=== PATIENT | female | born 1985 | race Caucasian/White ===

== ENCOUNTER 2017-01-28 08:19 | Emergency (ER) | payer MEDICAID, OTHER ==
--- NOTE | 2017-01-28 08:47 | ER Document Report ---
HPI - HPI Patient complains to provider of: productive cough Onset: Other Onset/Duration: Persistent Quality of pain: Burning Severity: Severe Pain Level: 4 Context: Patient presents emergency department with complaints of productive cough for the past 3 days. Reports she's been coughing up some green sputum. She also reports her chest feels tight when she coughs and henderson. She denies vomiting diarrhea is unsure fever because she's not taken her temperature. Last Tylenol was at 7:00 this morning. Patient reports she's having hard time sleeping because she keeps coughing. Patient reports history of bronchitis. Associated Symptoms: None Exacerbated by: Denies Relieved by: Denies Similar symptoms previously: Yes - hx bronchitis yearly Recently seen / treated by doctor: No - REPRODUCTIVE Reproductive: DENIES: : - DERM Skin Color: Normal Past Medical History - General Information source: Patient Last Menstrual Period: 26 weeks due 07/28/17, - Social History Smoking Status: Unknown if Ever Smoked Cigarette use (# per day): No Frequency of alcohol use: None Drug Abuse: None Lives with: Family Family History: Reviewed & Not Pertinent Patient has suicidal ideation: No Patient has homicidal ideation: No Pulmonary Medical History: Reports: Hx Bronchitis Endocrine Medical History: Reports: Hx Hyperthyroidism Renal/ Medical History: Denies: Hx Peritoneal Dialysis Surgical Hx: Negative - Immunizations Hx Diphtheria, Pertussis, Tetanus Vaccination: Yes Vertical Provider Document - CONSTITUTIONAL Agree With Documented VS: Yes Exam Limitations: No Limitations General Appearance: WD/WN, No Apparent Distress - NONTOXIC LOOKING - INFECTION CONTROL TRAVEL OUTSIDE OF THE [place] IN LAST 30 DAYS: No - HEENT HEENT: Atraumatic, Normocephalic. negative: Conjuctival Injection, Pharyngeal Tenderness, Tympanic Membrane Red, Tympanic Membrane Bulging - NECK Neck: Normal Inspection, Supple. negative: Lymphadenopathy-Left, Lymphadenopathy-Right - RESPIRATORY Respiratory: Breath Sounds Normal, No Respiratory Distress, Chest Non-Tender. negative: Rales, Rhonchi, Wheezing O2 Sat by Pulse Oximetry: 98 - CARDIOVASCULAR Cardiovascular: Regular Rate - GI/ABDOMEN Gastrointestinal: Abdomen Soft - GRAVID female, Abdomen Non-Tender - BACK Back: Normal Inspection - MUSCULOSKELETAL/EXTREMETIES Musculoskeletal/Extremeties: SHARI MCINTYRE - NEURO Level of Consciousness: Awake, Alert, Appropriate Motor/Sensory: No Motor Deficit - DERM Integumentary: Warm, Dry Course - Re-evaluation Re-evalutation: 01/28/17 09:48 Patient instructed on negative x-ray. Instructed on inhaler Tylenol with codeine for cough. She verbalized understanding. She was also instructed to follow up with her primary care provider on Tuesday for recheck, return for concerns - Vital Signs Vital signs: Temp Pulse Resp BP Pulse Ox 98.7 F 104 H 18 128/77 H 98 01/28/17 08:20 01/28/17 08:20 01/28/17 08:20 01/28/17 08:20 01/28/17 08:20 - Diagnostic Test Radiology reviewed: Image reviewed, Reports reviewed - EXAM DESCRIPTION: CHEST PA/LAT COMPLETED DATE/TIME: 01/28/2017 9:30 am REASON FOR STUDY: productive cough COMPARISON: None. EXAM PARAMETERS: NUMBER OF VIEWS: two views TECHNIQUE: Digital Frontal and Lateral radiographic views of the chest acquired. RADIATION DOSE: NA LIMITATIONS: none FINDINGS: LUNGS AND PLEURA: No opacities, masses or pneumothorax. No pleural effusion. MEDIASTINUM AND HILAR STRUCTURES: No masses or contour abnormalities. HEART AND VASCULAR STRUCTURES: Heart normal size. No evidence for failure. BONES: No acute findings. HARDWARE: None in the chest. OTHER: No other significant finding. TECHNICAL DOCUMENTATION: JOB ID: [id number] [employer]- All Rights Reserved RAD/CHEST PA/LAT IMPRESSION: NO SIGNIFICANT RADIOGRAPHIC FINDING IN THE CHEST. Discharge - Discharge Clinical Impression: Cough Disposition: HOME, SELF-CARE Instructions: Acetaminophen with Codeine ([facility]), Bronchodilators ([facility]) Additional Instructions: *You have been evaluated for a cough *Take medication as prescribed for cough *Use inhaler as prescribed, 2 puffs every 4-6 hours for cough *Increase fluids *Monitor your temperature, take Tylenol as indicated *Follow up with a primary care provider on Tuesday *Return to ED for increasing fever, cough, worsening condition, changes, needs Prescriptions: Acetaminophen with Codeine [Acetaminop-Codeine 120-12 mg/5] 5 ml PO Q4H PRN #60 solution PRN Reason: Referrals: GRAY LUJAN, GABRIELLA-C [Primary Care Provider] - Follow up in 3-5 days
[2017-01-28] MEDS ORDERED: ALBUTEROL SULFATE HFA (90 MCG/PUFF) 8 GM MDI (1 MDI/ER DISP) IH ONE (09:25)
[2017-01-28 09:59] VITALS: BP 122/66
== END 2017-01-28 09:58 | disposition home or self-care (01) ==
LOC: ER 08:19
DX: O26.92 Pregnancy related conditions, unspecified, second trimester (principal); R05 Cough; Z3A.26 26 weeks gestation of pregnancy
CPT/HCPCS: 99283; 71020; J3490

== ENCOUNTER 2017-02-01 15:11 | Emergency (ER) | payer MEDICAID ==
--- NOTE | 2017-02-01 16:03 | ER Document Report ---
HPI - HPI Patient complains to provider of: SINUS PAIN AND PRESSURE, COUGH Onset: Other - TUESDAY Onset/Duration: Gradual, Worse Quality of pain: Achy Severity: Moderate Pain Level: 4 Context: Patient states she was seen by her computer software engineer on for OB check and placed on Keflex for possible sinus infection. Patient is also taking Tylenol sinus and cold medications. States it is not helping, now she is coughing and her upper back is hurting from coughing so much. Cough has gotten worse over the last couple of days, patient is producing yellow sputum. Denies fever. Patient complains of pain over her maxillary sinuses, and states her upper teeth hurt. Associated Symptoms: Productive cough, Headache, Sinus pain/drainage. denies: Fever, Shortness of breath Exacerbated by: Coughing Relieved by: Denies Similar symptoms previously: Yes Recently seen / treated by doctor: Yes - ROS ROS below otherwise negative: Yes Systems Reviewed and Negative: Yes All other systems reviewed and negative - CONSTITUTIONAL Constitutional: DENIES: Fever - EENT EENT: REPORTS: Nasal Drainage-Purulent, Congestion - NEURO Neurology: REPORTS: Headache - CARDIOVASCULAR Cardiovascular: REPORTS: Chest pain - WITH COUGH - RESPIRATORY Respiratory: REPORTS: Coughing. DENIES: Trouble Breathing - GASTROINTESTINAL Gastrointestinal: DENIES: Abdominal Pain - URINARY Urinary: DENIES: Dysuria - REPRODUCTIVE Reproductive: DENIES: : - MUSCULOSKELETAL Musculoskeletal: REPORTS: Back Pain - UPPER BACK PAIN FROM COUGHING. DENIES: Extremity pain - DERM Skin Color: Normal Skin Problems: None Past Medical History - General Information source: Patient - Social History Smoking Status: Former Smoker - QUIT 2-3 MONTHS AGO Chew tobacco use (# tins/day): No Frequency of alcohol use: None Drug Abuse: None Lives with: Family Family History: Reviewed & Not Pertinent Patient has suicidal ideation: No Patient has homicidal ideation: No Pulmonary Medical History: Reports: Hx Bronchitis Endocrine Medical History: Reports: Hx Hyperthyroidism Renal/ Medical History: Denies: Hx Peritoneal Dialysis Surgical Hx: Negative - Immunizations Hx Diphtheria, Pertussis, Tetanus Vaccination: Yes Vertical Provider Document - CONSTITUTIONAL Agree With Documented VS: Yes Exam Limitations: No Limitations General Appearance: WD/WN, No Apparent Distress - INFECTION CONTROL TRAVEL OUTSIDE OF THE [place] IN LAST 30 DAYS: No - HEENT HEENT: Atraumatic, Normocephalic Notes: TMs dull bilaterally. Patient very tender over maxillary sinuses. Throat mildly injected, no cervical adenopathy. - NECK Neck: Normal Inspection - RESPIRATORY Respiratory: Breath Sounds Normal, No Respiratory Distress O2 Sat by Pulse Oximetry: 97 Notes: Patient has frequent, barky cough with deep breathing on exam. Nonproductive at this time. - CARDIOVASCULAR Cardiovascular: Regular Rate, Regular Rhythm - GI/ABDOMEN Gastrointestinal: Abdomen Non-Tender Notes: Patient 27 weeks . - BACK Notes: Muscles tender upper to mid back with palpation. - MUSCULOSKELETAL/EXTREMETIES Musculoskeletal/Extremeties: SHARI MCINTYRE - NEURO Level of Consciousness: Awake, Alert, Appropriate - DERM Integumentary: Warm, Dry, No Rash Course - Re-evaluation Re-evalutation: 02/01/17 17:05 Patient states she feels better after albuterol treatment, and states she is coughing less. Discussed x-ray results with patient, they were negative for pneumonia. - Vital Signs Vital signs: Temp Pulse Resp BP Pulse Ox 98.1 F 96 16 124/75 97 02/01/17 15:39 02/01/17 15:39 02/01/17 15:39 02/01/17 15:39 02/01/17 15:39 Discharge - Discharge Clinical Impression: Cough Acute maxillary sinusitis, unspecified Qualifiers: Recurrence: not specified as recurrent Qualified Code(s): J01.00 - Acute maxillary sinusitis, unspecified Condition: Good Disposition: HOME, SELF-CARE Additional Instructions: Meds as prescribed. Start Augmentin tomorrow since you received Rocephin today in ER. Continue sinus medications as previously instructed. Push fluids. X-ray was negative for pneumonia. Follow with your doctor this week for recheck. Return as needed. Prescriptions: Albuterol Sulfate [Proair HFA] 8.5 gm IH PRN PRN #1 hfa.aer.ad PRN Reason: Amoxicillin/Potassium Clav [Augmentin 875-125 Tablet] 1 each PO BID #20 tablet Fluticasone Propionate [Flonase Allergy Relief] 15.8 ml NS DAILY #1 spray.susp Hydrocodone/Acetaminophen [[place] 5-325 mg Tablet] 1 tab PO PRN PRN #10 tablet PRN Reason:
[2017-02-01] MEDS ORDERED: ALBUTEROL SULFATE 0.083% NEB 2.5 MG/3 ML AMPUL NEB ONE (16:07)
[2017-02-01] MEDS ORDERED: CEFTRIAXONE INJ 1000 MG VIAL IM ONE (17:04)
[2017-02-01] MEDS ORDERED: LIDOCAINE 1% INJ-PF (10 MG/ML) 30 ML SDV INJ ONE (17:04)
[2017-02-01] MEDS ORDERED: HYDROCODONE/ACETAMINOPHEN 5-325 MG TABLET PO ONE (17:04)
[2017-02-01 17:32] VITALS: BP 107/68
== END 2017-02-01 17:34 | disposition home or self-care (01) ==
LOC: ER 15:11
DX: O99.512 Diseases of the respiratory system complicating pregnancy, second trimester (principal); J01.00 Acute maxillary sinusitis, unspecified; O26.892 Other specified pregnancy related conditions, second trimester; R05 Cough; R51 Headache; R07.89 Other chest pain; O99.89 Other specified diseases and conditions complicating pregnancy, childbirth and the puerperium; M54.89 Other dorsalgia; Z3A.27 27 weeks gestation of pregnancy; Z87.891 Personal history of nicotine dependence
CPT/HCPCS: 94640; 99283; 96372; 71010; J3490; J0696

== ENCOUNTER 2017-04-18 11:13 | Outpatient (CLI) | payer MEDICAID ==
[2017-04-18] MEDS ORDERED: MAG HYDROX/AL HYDROX/SIMETH SUSP 30 ML UDCUP ONE (11:48)
--- NOTE | 2017-04-18 14:14 | Non Stress Test Report ---
Non Stress Test Datetime Report Generated by CPN: 04/18/2017 14:13 INDICATION Indication for Study: Ordered by Provider Indication for Study (NST) Other: Repeat NST MONITORING Monitor Explained: Monitor Explained; Test Explained; Patient Verbalized Understanding Time on Monitor: 04/18/2017 11:40 Time off Monitor: 04/18/2017 12:27 NST Duration: 47 NST INTERVENTIONS NST Interventions: PO Hydration; Reposition Patient Physician Notified NST: P Saucedo CNM BABY A: [id number] BABY A Movement : Present Contraction Frequency : Irr FHR Baseline : 135 Accelerations : 15X15 Decelerations : None Variability : Moderate 6-25bpm NST Review: Meets Criteria for Reactive NST NST Review and Verified By : Lore PALMA RN NST Results: Reactive NST REPORT Report Trigger: Send Report
== END 2017-04-18 12:55 | disposition home or self-care (01) ==
LOC: LC 11:13
PROVIDERS: ATTEND Obstetrics & Gynecology
DX: Z34.90 Encounter for supervision of normal pregnancy, unspecified, unspecified trimester (principal)
CPT/HCPCS: 59025; 82962; J3490

== ENCOUNTER 2017-05-02 11:02 | Inpatient (IN) | payer MEDICAID ==
[2017-05-02] MEDS ORDERED: RINGERS SOLUTION,LACTATED 1,000 ML IV PRN (12:22)
--- NOTE | 2017-05-02 12:27 | L&D Progress Notes ---
PROGRESS NOTES Datetime Report Generated by CPN: 05/02/2017 12:27 PROGRESS NOTE Comment: pt came from office for repeat NST, absent to minimal variability, pt admitted, IV bolus, resuscitation, changed position, Dr. Randall was notified, strip improved after hydration to moderate variability, one variable' watching strip closely SIGNATURE SIGNATURE: [id number] SIGNATURE: [id number] Assignment: Nilsa Randall MD Signature: with User ID: [email or web address] : with User ID: [email or web address]
[2017-05-02 12:51] LABS: ABSOLUTE EOSINOPHILS # (AUTO) 0.1 10^3/uL (0.0-0.6); ABSOLUTE LYMPHOCYTES (AUTO) 2.3 10^3/uL (0.5-4.7); ABSOLUTE MONOCYTES (AUTO) 0.8 10^3/uL (0.1-1.4); ABSOLUTE NEUT (AUTO) 8.3 10^3/uL (1.7-8.2); BASOPHILS % (AUTO) 0.3 % (0-2); EOSINOPHILS % (AUTO) 1.3 % (0-6); HEMATOCRIT 26.4 % (36.0-47.0); HEMOGLOBIN 8.5 g/dL (12.0-15.5); HGB HCT DIFFERENCE -0.9; MEAN CORPUSCULAR HEMOGLOBIN 26.3 pg (27.0-33.4); MEAN CORPUSCULAR VOLUME 82 fl (80-97); RED BLOOD COUNT 3.21 10^6/uL (3.72-5.28); RED CELL DISTRIBUTION WIDTH 15.6 % (11.5-14.0); SEGMENTED NEUTROPHILS % (AUTO) 71.4 % (42-78); WHITE BLOOD COUNT 11.6 10^3/uL (4.0-10.5)
[2017-05-02] MEDS ORDERED: CITRIC ACID/SODIUM CITRATE ORAL SOLN 15 ML UDCUP ONE (12:54)
[2017-05-02] MEDS ORDERED: CEFAZOLIN 2 GM/D5W RTU 2 GM/50 ML RTUPB IV ONE (12:54)
[2017-05-02] MEDS ORDERED: CEFAZOLIN 2 GM/D5W RTU 50 ML IV ONE (13:01)
[2017-05-02] MEDS ORDERED: CITRIC ACID/SODIUM CITRATE ORAL SOLN 15 ML UDCUP PO ONE (13:01)
[2017-05-02 13:14] LABS: APPEARANCE,URINE CLEAR; BILIRUBIN,URINE NEGATIVE (NEGATIVE); GLUCOSE, URINE NEGATIVE (NEGATIVE); KETONES,URINE NEGATIVE (NEGATIVE); LEUKOCYTE ESTERASE,URINE NEGATIVE (NEGATIVE); NITRITE,URINE NEGATIVE (NEGATIVE); PROTEIN,URINE NEGATIVE (NEGATIVE); URINE SPECIFIC GRAVITY 1.006; UROBILINOGEN,URINE NEGATIVE mg/dL (<2.0)
[2017-05-02] MEDS ORDERED: MIDAZOLAM 2 MG/2 ML INJ ONE (13:33)
[2017-05-02] MEDS ORDERED: FENTANYL CITRATE INJ/PF 100 MCG/2 ML AMPUL ONE ×2 (13:33→15:52)
[2017-05-02] MEDS ORDERED: ONDANSETRON HCL INJ/PF 4 MG/2 ML SDV ONE (13:33)
[2017-05-02] MEDS ORDERED: EPHEDRINE SULFATE INJ 50 MG/1 ML AMPULE ONE (13:33)
[2017-05-02] MEDS ORDERED: OXYTOCIN 10 UNIT/ML VIAL ONE (13:33)
[2017-05-02 13:41] LABS: URINE BARBITURATES SCREEN NEGATIVE; URINE METHADONE SCREEN NEGATIVE; URINE OPIATES LOW NEGATIVE; URINE PHENCYCLIDINE SCREEN NEGATIVE
[2017-05-02] MEDS ORDERED: OXYTOCIN/NORMAL SALINE 20 UNIT/1,000 ML RTUINJ ONE (14:14)
[2017-05-02] MEDS ORDERED: OXYTOCIN/NORMAL SALINE 20 UNIT/1,000 ML RTUINJ INJ PRN (15:02)
[2017-05-02] MEDS ORDERED: ONDANSETRON 4 MG TAB.RAPDIS PO PRN (15:21)
[2017-05-02] MEDS ORDERED: ONDANSETRON HCL INJ/PF 4 MG/2 ML SDV IV PRN (15:22)
[2017-05-02] MEDS ORDERED: MORPHINE SULFATE 10 MG/ML INJ IV PRN (15:30)
[2017-05-02] MEDS ORDERED: PROMETHAZINE HCL INJ 25 MG/1 ML VIAL IM PRN (15:30)
[2017-05-02] MEDS ORDERED: RINGERS SOLUTION,LACTATED 1,000 ML IV SCH (15:30)
[2017-05-02] MEDS ORDERED: MORPHINE SULFATE 10 MG/ML INJ IM PRN ×2 (15:30→16:06)
[2017-05-02] MEDS ORDERED: OXYCODONE-ACETAMINOPHEN 5-325 MG TABLET PO PRN ×3 (15:30→16:06)
[2017-05-02] MEDS ORDERED: DIPH/PERTUSS(ACELL)/TETANUS VAC/PF 0.5 ML SYR (>=10YO) IM PRN ×2 (15:30→16:06)
[2017-05-02] MEDS ORDERED: SIMETHICONE 80 MG TAB.CHEW PO PRN (15:30)
[2017-05-02] MEDS ORDERED: ACETAMINOPHEN 325 MG TABLET PO PRN ×2 (15:30→16:06)
[2017-05-02] MEDS ORDERED: MEASLES,MUMPS&RUBELLA VACC/PF 0.5 ML VIAL SUBCUT PRN ×2 (15:30→16:06)
[2017-05-02] MEDS ORDERED: KETOROLAC TROMETHAMINE INJ/PF 30 MG/1 ML SDV ONE (15:45)
[2017-05-02] MEDS ORDERED: ACETAMINOPHEN 100 ML IV ONE (15:45)
[2017-05-02] MEDS: ACETAMINOPHEN 100 ML IV SCH ×2 (15:45→23:18)
--- NOTE | 2017-05-02 16:03 | OPERATIVE REPORT E ---
Operative Report NAME: ALEXIA THEODORE : 1985 AGE: 31Y DATE OF SURGERY: ROOM: LR200 PREOPERATIVE DIAGNOSES: 1. INTRAUTERINE AT 38 WEEKS AND 3 DAYS. 2. A1 DIABETES. 3. NONREASSURING HEART TONES. POSTOPERATIVE DIAGNOSES: 1. INTRAUTERINE AT 38 WEEKS AND 3 DAYS. 2. A1 DIABETES. 3. NONREASSURING HEART TONES. OPERATION: Low transverse hysterotomy section. SURGEON: MICHELLE CURRY M.D. ANESTHESIA: Spinal. ANESTHESIOLOGIST: *------*. FINDINGS: A male , cephalic presentation, with Apgars of 8 and 9. COMPLICATIONS: None. ESTIMATED BLOOD LOSS: 600 mL. TISSUE REMOVED OR ALTERED: Placenta. PROCEDURE: The patient was taken to the operating room, prepared and draped in the normal sterile fashion in the supine position with a leftward tilt. A transverse skin incision was made with a scalpel and carried through the underlying layer of fascia with the same scalpel. The fascia was excised in the midline and extended laterally with Nguyen scissors. The rectus muscle was divided and the peritoneal cavity was entered bluntly with good visualization of the bladder and the uterus. A bladder blade was inserted in the uterus. The hysterotomy was nicked on the uterus with a scalpel and extended laterally with surgeon finger pressure. The infant was then delivered atraumatically. The nose and mouth were suctioned with the suction bulb and the cord was clamped and cut and the was handed off to waiting pediatricians. The cord blood was collected and the placenta was removed manually. The uterus was exteriorized and cleared of clots and debris. The hysterotomy was closed with 0 Monocryl in a running locked fashion. A second layer of the same suture was used to imbricate to ensure hemostasis. The uterus was returned to the abdomen. The hysterotomy was inspected for hemostasis and found to be so. The rectus muscle and peritoneum were then reapproximated with a mattress suture of 2-0 chromic. The fascia was closed with 0 Vicryl. The subcutaneous layer was closed with plain catgut and the skin was closed with 4-0 Vicryl. The patient tolerated the procedure well. Sponge, lap and needle counts were correct x2. The patient was taken to recovery in stable condition. DICTATING PHYSICIAN: MICHELLE CURRY M.D. [id number] PHY#: [id number] ID: [id number] JOB#: [id number] ACCT: [id number] cc:MICHELLE CURRY M.D. >
[2017-05-02] MEDS ORDERED: PROMETHAZINE HCL INJ 25 MG/1 ML VIAL IV PRN (16:06)
[2017-05-02] MEDS ORDERED: OXYTOCIN/NORMAL SALINE 1,000 ML IV PRN (16:06)
--- NOTE | 2017-05-02 16:48 | Delivery Summary ---
Del Sum A-C Datetime Report Generated by CPN: 05/02/2017 16:47 DELIVERY PERSONNEL DELIVERY PERSONNEL: [id number] Delivery Doctor:: Nilsa Randall MD Labor and Delivery Nurse:: Theresa Randall RNlineman service or work dispatcher Nurse:: Jessica Blanchard RN Neonatal Nurse Practitioner:: ABHISHEK Colon Nursery Nurse:: Luda Ryder RN Beam Dyer/WASTE CHOPPER: ST Fadi Beam Dyer/WASTE CHOPPER: Carol Stewart BLADE BENDER FURNACE TENDER MATERNAL INFORMATION Delivery Anesthesia: Spinal Medications After Delivery: Pitocin Bolus-Please Comment Meds After Delivery Comment: Pitocin 20 units in 1 L NS bolusing per order Maternal Complications: None LABOR SUMMARY EDC: 05/11/2017 00:00 No. Babies in Womb: 1 Attempted: No Labor Anesthesia: None LABOR INFORMATION Reason for Induction: Not Applicable Oxytocin: N/A Group B Beta Strep: NEGATIVE Antibiotics # of Doses: 1 Antibiotics Time of Last Dose: 1335 Name of Antibiotic Given: Ancef Steroids Given: None Reason Steroids Not Administered: Not Applicable MEMBRANES Membranes Rupture Method: Artificial Rupture of Membranes: 05/02/2017 14:00 Length of Rupture (hr): 0.00 Amniotic Fluid Color: Clear Amniotic Fluid Amount: None Amniotic Fluid Odor: Normal STAGES OF LABOR Stage 3 hr: 0 Stage 3 min: 1 VAGINAL DELIVERY Episiotomy: None Laceration Extension: N/A Laceration Type: None Other Laceration: none Laceration Repair: Not Applicable Sponge Count Correct: N/A Sharps Count Correct: N/A CSECTION DELIVERY Primary Indication: Nonreassuring Status Secondary Indication: N/A CSection Urgency: Non-Scheduled CSection Incidence: Primary Labor: No Labor Elective: N/A CSection Incision: Lower Uterine Transverse BABY A INFORMATION Delivery Date/Time: 05/02/2017 14:00 Method of Delivery: Born in Route : No : N/A Forceps: N/A Vacuum Extraction: N/A Shoulder Dystocia : No PRESENTATION/POSITION BABY A Presentation: Cephalic Cephalic Presentation: Vertex PLACENTA INFORMATION BABY A Placenta Delivery Time : 05/02/2017 14:01 Placenta Method of Delivery: Manual Removal Placenta Status: Delivered SCORES BABY A Heart Rate 1 min: >100 bpm Resp Effort 1 min: Good Cry Reflex Irritability 1 min: Cough or Sneeze or Pulls Away Muscle Tone 1 min: Some Flexion of Extremities Color 1 min: Body [place], Extremities Blue SCORE 1 MIN: 8 Heart Rate 5 min: >100 bpm Resp Effort 5 min: Good Cry Reflex Irritability 5 min: Cough or Sneeze or Pulls Away Muscle Tone 5 min: Some Flexion of Extremities Color 5 min: Body [place], Extremities Blue SCORE 5 MIN: 8 INFANT INFORMATION BABY A Gestational Age at Delivery: 38.5 Gestational Status: Early Term- 37- 38.6 Weeks Outcome : Liveborn Infant Condition : Stable Sex: Male IDENTIFICATION BABY A Verification Date/Time: 05/02/2017 14:05 ID Band Number: [id number] Mother's Name Verified: Yes Infant RN Verifying : Fabrizio Randall, RN, C. Howell, RN WEIGHT/LENGTH BABY A Infant Birthweight (gm): 2880 Infant Weight (lb): 6 Infant Weight (oz): 6 Length (in): 19.25 Length (cm): 48.90 CORD INFORMATION BABY A No. Cord Vessels: 3 Nuchal Cord : N/A Cord Blood Taken: Yes-For Eval (Mom's Blood Type - or O+) Infant Suction: Mouth; Nose ASSESSMENT BABY A Skin to Skin: No BABY B INFORMATION : N/A
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
[2017-05-02] MEDS: DOCUSATE SODIUM 100 MG CAPSULE PO SCH (17:49)
[2017-05-02] MEDS: KETOROLAC TROMETHAMINE INJ/PF 30 MG/1 ML SDV IV SCH (17:49)
[2017-05-02] MEDS: OXYCODONE-ACETAMINOPHEN 5-325 MG TABLET PO PRN ×2 (17:55→21:45)
[2017-05-02] MEDS ORDERED: DOCUSATE SODIUM 100 MG CAPSULE PO SCH (18:00)
[2017-05-02] MEDS: SIMETHICONE 80 MG TAB.CHEW PO PRN (20:20)
[2017-05-02] MEDS ORDERED: KETOROLAC TROMETHAMINE INJ/PF 30 MG/1 ML SDV IV SCH (22:00)
[2017-05-03] MEDS: KETOROLAC TROMETHAMINE INJ/PF 30 MG/1 ML SDV IV SCH ×2 (02:02→09:40)
[2017-05-03] MEDS: OXYCODONE-ACETAMINOPHEN 5-325 MG TABLET PO PRN ×2 (05:55→19:43)
[2017-05-03 07:33] LABS: HEMATOCRIT 25.5 % (36.0-47.0); HEMOGLOBIN 8.1 g/dL (12.0-15.5); HGB HCT DIFFERENCE -1.2; MEAN CORPUSCULAR HGB CONC 31.8 g/dL (32.0-36.0); MEAN CORPUSCULAR VOLUME 82 fl (80-97); RED BLOOD COUNT 3.11 10^6/uL (3.72-5.28); RED CELL DISTRIBUTION WIDTH 15.7 % (11.5-14.0); WHITE BLOOD COUNT 16.7 10^3/uL (4.0-10.5)
[2017-05-03] MEDS: PRENATAL VITAMIN W-O CA NO5/FE FUMARATE/FA CAPSULE PO SCH (09:39)
[2017-05-03] MEDS: DOCUSATE SODIUM 100 MG CAPSULE PO SCH ×2 (09:39→18:05)
[2017-05-03] MEDS: SIMETHICONE 80 MG TAB.CHEW PO PRN (09:39)
[2017-05-03] MEDS ORDERED: PRENATAL VITAMIN W-O CA NO5/FE FUMARATE/FA CAPSULE PO SCH (10:00)
--- NOTE | 2017-05-03 11:20 | PDOC PROGRESS REPORT ---
Subjective-OB Subjective: Post Delivery Day: 31 year old. Denies any needs at this time s/p primary c/s extensive psychosocial history - liaison planner well incision dry and intact ff@u-1 mod lochia abdomen nontender mildly distended encouraged pt to increase ambulation and hydration +flatus pain well managed anticipate d/c in AM Physical Exam (OB) Vital Signs: Temp Pulse Resp BP Pulse Ox 98.0 F 91 20 113/60 99 05/03/17 08:30 05/03/17 08:30 05/03/17 08:30 05/03/17 08:30 05/03/17 08:30 Intake & Output 05/02/17 05/03/17 05/04/17 06:59 06:59 06:59 Intake Total 1850 Output Total 2950 Balance -1100 Weight 79.2 kg - PIH/Pre-Eclampsia Clonus: Negative Headache: Absent Epigastric Pain: No Visual Changes: No - Dressing Removed: No Incision: Dressing Closure Type: Sutures - Lochia Lochia Amount: Scant < 10 ml Lochia Color: Rubra/Red - Abdomen Description: Tender, Soft Hernia Present: No Fundal Description: Firm, Midline Fundal Height: u/u - u/2 Objective-Diagnostic Laboratory: 05/03/17 07:17 05/02/17 12:29 05/02/17 05/02/17 05/02/17 12:05 12:29 12:29 WBC 11.6 H RBC 3.21 L Hgb 8.5 L Hct 26.4 L MCV 82 MCH 26.3 L MCHC 32.0 RDW 15.6 H Plt Count 397 Seg Neutrophils % 71.4 Lymphocytes % 20.0 Monocytes % 7.0 Eosinophils % 1.3 Basophils % 0.3 Absolute Neutrophils 8.3 H Absolute Lymphocytes 2.3 Absolute Monocytes 0.8 Absolute Eosinophils 0.1 Absolute Basophils 0.0 Glucose 228 H Urine Color STRAW Urine Appearance CLEAR Urine pH 6.0 Ur Specific [place] 1.006 Urine Protein NEGATIVE Urine Glucose (UA) NEGATIVE Urine Ketones NEGATIVE Urine Blood NEGATIVE Urine Nitrite NEGATIVE Ur Leukocyte Esterase NEGATIVE Urine WBC (Auto) 0 Urine RBC (Auto) 0 Blood Type Antibody Screen 05/02/17 05/03/17 12:29 07:17 WBC 16.7 H RBC 3.11 L Hgb 8.1 L Hct 25.5 L MCV 82 MCH 26.0 L MCHC 31.8 L RDW 15.7 H Plt Count 388 Seg Neutrophils % Lymphocytes % Monocytes % Eosinophils % Basophils % Absolute Neutrophils Absolute Lymphocytes Absolute Monocytes Absolute Eosinophils Absolute Basophils Glucose Urine Color Urine Appearance Urine pH Ur Specific [place] Urine Protein Urine Glucose (UA) Urine Ketones Urine Blood Urine Nitrite Ur Leukocyte Esterase Urine WBC (Auto) Urine RBC (Auto) Blood Type A NEGATIVE Antibody Screen NEGATIVE
[2017-05-03] MEDS: IBUPROFEN 800 MG TABLET PO SCH ×2 (14:26→21:22)
[2017-05-03] MEDS ORDERED: OXYCODONE HCL IR 5 MG TABLET ONE (14:44)
[2017-05-03] MEDS ORDERED: OXYCODONE HCL IR 5 MG TABLET PO ONE (15:30)
[2017-05-03] MEDS ORDERED: MAGNESIUM HYDROXIDE SUSP 30 ML UDCUP PO ONE (22:30)
[2017-05-04] MEDS: IBUPROFEN 800 MG TABLET PO SCH ×2 (05:01→09:30)
[2017-05-04] MEDS: OXYCODONE-ACETAMINOPHEN 5-325 MG TABLET PO PRN ×2 (06:12→10:19)
[2017-05-04] MEDS: MAGNESIUM HYDROXIDE SUSP 30 ML UDCUP PO SCH ×2 (06:15→13:05)
[2017-05-04] MEDS: PRENATAL VITAMIN W-O CA NO5/FE FUMARATE/FA CAPSULE PO SCH (09:30)
[2017-05-04] MEDS: DOCUSATE SODIUM 100 MG CAPSULE PO SCH (09:31)
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
[2017-05-04 12:44] VITALS: BP 129/73
== END 2017-05-04 13:22 | disposition home or self-care (01) | DRG 765 ==
LOC: LC 11:02 → LR 12:08 → 2S 17:10
PROVIDERS: ADMIT Obstetrics & Gynecology; ATTEND Obstetrics & Gynecology
PROC: 10D00Z1 Extraction of Products of Conception, Low, Open Approach (ICD-10-PCS; principal; 2017-05-02)
PROC: 4A1HXCZ Monitoring of Products of Conception, Cardiac Rate, External Approach (ICD-10-PCS; 2017-05-02)
DX: O14.94 Unspecified pre-eclampsia, complicating childbirth (principal); O24.92 Unspecified diabetes mellitus in childbirth; O99.344 Other mental disorders complicating childbirth; F41.9 Anxiety disorder, unspecified; F32.9 Major depressive disorder, single episode, unspecified; O24.420 Gestational diabetes mellitus in childbirth, diet controlled; O99.02 Anemia complicating childbirth; D50.9 Iron deficiency anemia, unspecified; O13.4 Gestational [pregnancy-induced] hypertension without significant proteinuria, complicating childbirth; O76 Abnormality in fetal heart rate and rhythm complicating labor and delivery; O99.42 Diseases of the circulatory system complicating childbirth; I34.1 Nonrheumatic mitral (valve) prolapse; F90.9 Attention-deficit hyperactivity disorder, unspecified type; F41.0 Panic disorder [episodic paroxysmal anxiety]; D47.3 Essential (hemorrhagic) thrombocythemia; O99.89 Other specified diseases and conditions complicating pregnancy, childbirth and the puerperium; M19.90 Unspecified osteoarthritis, unspecified site; Z79.899 Other long term (current) drug therapy; Z87.891 Personal history of nicotine dependence; Z88.3 Allergy status to other anti-infective agents; Z88.2 Allergy status to sulfonamides; Z3A.38 38 weeks gestation of pregnancy; Z37.0 Single live birth
CPT/HCPCS: 1961; 36415; 59025; 80307; 81001; 82947; 85025; 85027; 86592; 86850; 86900; 86901; 88307; 90715; 94799; J0131; J0690; J1885; J2250; J2405; J2590; J3010; J3490

== ENCOUNTER 2018-10-28 18:21 | Emergency (ER) | payer MEDICAID, OTHER ==
--- NOTE | 2018-10-28 18:47 | ER Document Report ---
ED Medical Screen (RME) - General Chief Complaint: Vag Bleeding, +preg <12wks Stated Complaint: VAGINAL SPOTTING Time Seen by Provider: 10/28/18 18:41 Notes: 32-year-old female patient is with blood type a negative, just under 12 weeks . She started with pink spotting all day today. She has had some cramping but she feels that it is due to gas or constipation, not cramping like menstrual cramping. She reports in the past she has gotten the RhoGam shot at 12 weeks due to vaginal bleeding, otherwise it was at the 6-month point. [facility]Gam [facility] since she is about 12 weeks. I have greeted and performed a rapid initial assessment of this patient. A comprehensive ED assessment and evaluation of the patient, analysis of test results and completion of the medical decision making process will be conducted by additional ED providers. TRAVEL OUTSIDE OF THE [place] IN LAST 30 DAYS: No - Related Data Allergies/Adverse Reactions: neomycin Allergy (Verified 10/28/18 18:22) Sulfa (Sulfonamide Antibiotics) Allergy (Verified 10/28/18 18:22) Past Medical History Pulmonary Medical History: Reports: Hx Bronchitis Endocrine Medical History: Reports: Hx Hyperthyroidism Renal/ Medical History: Denies: Hx Peritoneal Dialysis - Immunizations Hx Diphtheria, Pertussis, Tetanus Vaccination: Yes Physical Exam - Vital signs Vitals: Temp Pulse Resp BP Pulse Ox 98.7 F 96 16 126/80 H 99 10/28/18 18:31 10/28/18 18:31 10/28/18 18:31 10/28/18 18:31 10/28/18 18:31 Course - Vital Signs Vital signs: Temp Pulse Resp BP Pulse Ox 98.7 F 96 16 126/80 H 99 10/28/18 18:31 10/28/18 18:31 10/28/18 18:31 10/28/18 18:31 10/28/18 18:31 Doctor's Discharge - Discharge Referrals: MICHELLE CURRY MD [Primary Care Provider] - Follow up as needed
[2018-10-28 19:01] LABS: ABSOLUTE BASOPHILS # (AUTO) 0.1 10^3/uL (0.0-0.2); ABSOLUTE EOSINOPHILS # (AUTO) 0.1 10^3/uL (0.0-0.6); ABSOLUTE LYMPHOCYTES (AUTO) 3.3 10^3/uL (0.5-4.7); ABSOLUTE MONOCYTES (AUTO) 0.7 10^3/uL (0.1-1.4); BASOPHILS % (AUTO) 0.6 % (0-2); HEMOGLOBIN 12.9 g/dL (12.0-15.5); LYMPHOCYTES % (AUTO) 27.2 % (13-45); MEAN CORPUSCULAR HGB CONC 34.9 g/dL (32.0-36.0); MEAN CORPUSCULAR VOLUME 92 fl (80-97); MONOCYTES % (AUTO) 5.8 % (3-13); PLATELET COUNT 429 10^3/uL (150-450); RED BLOOD COUNT 4.04 10^6/uL (3.72-5.28); RED CELL DISTRIBUTION WIDTH 13.3 % (11.5-14.0); SEGMENTED NEUTROPHILS % (AUTO) 65.4 % (42-78); TOTAL CELLS COUNTED % (AUTO) 100 %; WHITE BLOOD COUNT 12.2 10^3/uL (4.0-10.5)
--- NOTE | 2018-10-28 19:08 | ER Document Report ---
HPI - HPI Patient complains to provider of: Vaginal spotting Time Seen by Provider: 10/28/18 18:41 Onset: Other - 2 days Onset/Duration: Waxing and waning Quality of pain: No pain Pain Level: 0 Context: Patient is currently 11 weeks and reports vaginal spotting for the past 2 days. Patient has not yet established with a business intelligence architect for care. Patient denies any nausea vomiting or urinary symptoms. Patient denies any pelvic pain. Patient is concerned because she is Rh- and is concerned she needs the RhoGam shot. Associated Symptoms: Other - Vaginal spotting Exacerbated by: Denies Relieved by: Denies Similar symptoms previously: Yes Recently seen / treated by doctor: No - ROS ROS below otherwise negative: Yes Systems Reviewed and Negative: Yes All other systems reviewed and negative - CONSTITUTIONAL Constitutional: DENIES: Fever - NEURO Neurology: DENIES: Weakness - REPRODUCTIVE LMP: 08/09/18 Reproductive: REPORTS: : - DERM Skin Color: Normal Skin Problems: None Past Medical History - General Information source: Patient - Social History Smoking Status: Never Smoker Frequency of alcohol use: None Drug Abuse: None Occupation: None Lives with: Family Family History: Reviewed & Not Pertinent Patient has suicidal ideation: No Patient has homicidal ideation: No - Medical History Medical History: Negative Pulmonary Medical History: Reports: Hx Bronchitis Endocrine Medical History: Reports: Hx Hyperthyroidism Renal/ Medical History: Denies: Hx Peritoneal Dialysis Past Surgical History: Reports: Hx Section - Immunizations Hx Diphtheria, Pertussis, Tetanus Vaccination: Yes Vertical Provider Document - CONSTITUTIONAL Agree With Documented VS: Yes Exam Limitations: No Limitations General Appearance: WD/WN, No Apparent Distress - INFECTION CONTROL TRAVEL OUTSIDE OF THE [place] IN LAST 30 DAYS: No - HEENT HEENT: Atraumatic, Normocephalic - NECK Neck: Normal Inspection, Supple - RESPIRATORY Respiratory: Breath Sounds Normal, No Respiratory Distress - CARDIOVASCULAR Cardiovascular: Regular Rate, Regular Rhythm - GI/ABDOMEN Gastrointestinal: Abdomen Soft, Abdomen Non-Tender, No Organomegaly, Normal Bowel Sounds - BACK Back: Normal Inspection. negative: CVA Tenderness-Right, CVA Tenderness-Left - MUSCULOSKELETAL/EXTREMETIES Musculoskeletal/Extremeties: MAEW, FROM - NEURO Level of Consciousness: Awake, Alert, Appropriate Motor/Sensory: No Motor Deficit - DERM Integumentary: Warm, Dry, No Rash Course - Re-evaluation Re-evalutation: 10/28/18 20:49 Patient denies any urinary symptoms. Patient with minimal hematuria noted on urinalysis, will culture urine. Patient given RhoGam here this evening. Patient encouraged to follow-up with her DONOR SERVICES TECHNICIAN provider to establish care. - Vital Signs Vital signs: Temp Pulse Resp BP Pulse Ox 98.7 F 96 16 126/80 H 99 10/28/18 18:31 10/28/18 18:31 10/28/18 18:31 10/28/18 18:31 10/28/18 18:31 - Laboratory Result Diagrams: 10/28/18 18:50 Laboratory results interpreted by me: 10/28/18 18:50 WBC 12.2 H 10/28/18 20:50 Labs- Entire Visit 10/28/18 10/28/18 10/28/18 18:50 18:50 18:50 WBC 12.2 H RBC 4.04 Hgb 12.9 Hct 37.0 MCV 92 MCH 32.0 MCHC 34.9 RDW 13.3 Plt Count 429 Seg Neutrophils % 65.4 Lymphocytes % 27.2 Monocytes % 5.8 Eosinophils % 1.0 Basophils % 0.6 Absolute Neutrophils 8.0 Absolute Lymphocytes 3.3 Absolute Monocytes 0.7 Absolute Eosinophils 0.1 Absolute Basophils 0.1 Beta HCG, Quant 85564.00 H Total Beta HCG POSITIVE Urine Color Urine Appearance Urine pH Ur Specific [place] Urine Protein Urine Glucose (UA) Urine Ketones Urine Blood Urine Nitrite Urine Bilirubin Urine Urobilinogen Ur Leukocyte Esterase Urine WBC (Auto) Urine RBC (Auto) Squamous Epi Cells Auto Urine Mucus (Auto) Urine Ascorbic Acid Blood Type A NEGATIVE Antibody Screen NEGATIVE Rhogam Indicated RHOGAM REQUESTED 10/28/18 19:42 WBC RBC Hgb Hct MCV MCH MCHC RDW Plt Count Seg Neutrophils % Lymphocytes % Monocytes % Eosinophils % Basophils % Absolute Neutrophils Absolute Lymphocytes Absolute Monocytes Absolute Eosinophils Absolute Basophils Beta HCG, Quant Total Beta HCG Urine Color YELLOW Urine Appearance SLIGHTLY-CLOUDY Urine pH 5.0 Ur Specific [place] 1.021 Urine Protein NEGATIVE Urine Glucose (UA) NEGATIVE Urine Ketones NEGATIVE Urine Blood MODERATE H Urine Nitrite NEGATIVE Urine Bilirubin NEGATIVE Urine Urobilinogen NEGATIVE Ur Leukocyte Esterase NEGATIVE Urine WBC (Auto) 5 Urine RBC (Auto) 2 Squamous Epi Cells Auto 4 Urine Mucus (Auto) RARE Urine Ascorbic Acid NEGATIVE Blood Type Antibody Screen Rhogam Indicated - Diagnostic Test Radiology reviewed: Reports reviewed Discharge - Discharge Clinical Impression: Vaginal spotting, Intrauterine Condition: Stable Disposition: HOME, SELF-CARE Instructions: Bleeding During Early ([facility]) Additional Instructions: Return immediately for any new or worsening symptoms Followup with your primary care provider, call tomorrow to make a followup appointment Follow up with DONOR SERVICES TECHNICIAN provider to establish care Referrals: MICHELLE CURRY MD [ACTIVE STAFF] - Follow up as needed [facility] [NO LOCAL MD] - Follow up as needed
--- NOTE | 2018-10-28 20:00 | RADIOLOGY REPORT (SQ) ---
EXAM DESCRIPTION: U/S [id number] TRNABD 1GES W/ODOP COMPLETED DATE/TIME: 10/28/2018 7:50 pm REASON FOR STUDY: Almost 12 weeks, spotting, blood type A- COMPARISON: None. TECHNIQUE: Transabdominal static and realtime grayscale images acquired of the pelvis. Additional se lected spectral and color Doppler images recorded. All images stored on PACs. bHCG: Not available. CLINICAL DATES: 11 weeks 3 days LIMITATIONS: None. FINDINGS: FETUS: Single Living intrauterine . ULTRASOUND EGA: 12 weeks 0 days ULTRASOUND SILVERIO: 05/12/2019 EFW: Not applicable less than 20 weeks. CRL: 5.4 cm FHR: 163 beats per minute. SURVEY: Too early to assess. AMNIOTIC FLUID: Adequate amount. PLACENTA: Not yet developed due to early gestation. SUBCHORIONIC BLEED: No. SIZE OF BLEED: Not applicable. UTERUS: No masses. No anomalies. CERVICAL LENGTH: 5.2 cm Closed. RIGHT ADNEXA: Normal ovary with normal vascular flow. No adnexal free fluid. No adnexal masses. LEFT ADNEXA: Normal ovary with normal vascular flow. No adnexal free fluid. No adnexal masses. FREE FLUID: None. OTHER: No other significant finding. IMPRESSION: LIVING INTRAUTERINE . EGA 12 weeks 0 day Trimester of : First - 0 to 13 weeks. TECHNICAL DOCUMENTATION: JOB ID: [id number] [employer]- All Rights Reserved rev-03/03 Reading location - IP/workstation name: [email or web address]
[2018-10-28 20:07] LABS: APPEARANCE,URINE SLIGHTLY-CLOUDY; BILIRUBIN,URINE NEGATIVE (NEGATIVE); COLOR,URINE YELLOW; GLUCOSE, URINE NEGATIVE (NEGATIVE); KETONES,URINE NEGATIVE (NEGATIVE); LEUKOCYTE ESTERASE,URINE NEGATIVE (NEGATIVE); NITRITE,URINE NEGATIVE (NEGATIVE); PROTEIN,URINE NEGATIVE (NEGATIVE); URINE SPECIFIC GRAVITY 1.021; UROBILINOGEN,URINE NEGATIVE mg/dL (<2.0)
[2018-10-28 21:17] VITALS: BP 118/63
== END 2018-10-28 21:20 | disposition home or self-care (01) ==
LOC: ER 18:21
DX: O26.851 Spotting complicating pregnancy, first trimester (principal); Z3A.11 11 weeks gestation of pregnancy
CPT/HCPCS: 99284; 96372; 86900; 86901; 36415; 87086; 86850; 84702; 85025; 81001; 76801; J2790

== ENCOUNTER 2019-04-19 04:05 | Outpatient (CLI) | payer OTHER ==
[2019-04-19 05:00] LABS: APPEARANCE,URINE CLOUDY; BILIRUBIN,URINE NEGATIVE (NEGATIVE); COLOR,URINE YELLOW; GLUCOSE, URINE NEGATIVE (NEGATIVE); KETONES,URINE TRACE mg/dL (NEGATIVE); LEUKOCYTE ESTERASE,URINE NEGATIVE (NEGATIVE); NITRITE,URINE NEGATIVE (NEGATIVE); PROTEIN,URINE NEGATIVE (NEGATIVE); UROBILINOGEN,URINE NEGATIVE mg/dL (<2.0)
[2019-04-19 05:19] LABS: URINE AMPHETAMINES SCREEN NEGATIVE; URINE BARBITURATES SCREEN NEGATIVE; URINE BENZODIAZEPINES SCREEN NEGATIVE; URINE COCAINE SCREEN NEGATIVE; URINE MARIJUANA (THC) SCREEN NEGATIVE; URINE METHADONE SCREEN NEGATIVE; URINE PHENCYCLIDINE SCREEN NEGATIVE
== END 2019-04-19 06:15 | disposition home or self-care (01) ==
LOC: LC 04:05
PROVIDERS: ATTEND Student in an Organized Health Care Education/Training Program
DX: O47.03 False labor before 37 completed weeks of gestation, third trimester (principal); Z3A.36 36 weeks gestation of pregnancy
CPT/HCPCS: 59025; 80307; 81005

== ENCOUNTER 2019-07-28 20:51 | Emergency (ER) | payer OTHER ==
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
[2019-07-29 00:09] VITALS: BP 97/69
== END 2019-07-29 | disposition home or self-care (01) ==
LOC: ER 20:51 → EEVIPCON 20:51 → ER 07-29
DX: S40.022A Contusion of left upper arm, initial encounter (principal); S80.12XA Contusion of left lower leg, initial encounter; S50.11XA Contusion of right forearm, initial encounter; Y08.89XA Assault by other specified means, initial encounter; S30.810A Abrasion of lower back and pelvis, initial encounter; S30.811A Abrasion of abdominal wall, initial encounter; W54.8XXA Other contact with dog, initial encounter; F17.200 Nicotine dependence, unspecified, uncomplicated
CPT/HCPCS: 99283

== ENCOUNTER 2019-09-02 20:45 | Emergency (ER) | payer OTHER ==
[2019-09-02] MEDS ORDERED: DIAZEPAM 5 MG TABLET PO ONE (21:12)
[2019-09-02] MEDS ORDERED: KETOROLAC TROMETHAMINE INJ/PF 30 MG/1 ML SDV IM ONE (21:12)
--- NOTE | 2019-09-02 21:14 | ER Document Report ---
ED Medical Screen (RME) - General Chief Complaint: Neck Pain >24hrs old Stated Complaint: NECK PAIN/PAINFUL LUMP Time Seen by Provider: 09/02/19 21:08 Primary Care Provider: GRAY LUJAN NP-C [Primary Care Provider] - Follow up as needed Notes: Patient is a 33-year-old female who presents to the emergency department with a chief complaint of left lateral neck pain. Patient reports last night she had her head upside down drying her hair when she went to turn her head to the right to look at her children. Patient reports she felt a sharp pain in the left lateral aspect of her neck. Patient reports she is attempted use Tylenol and ibuprofen without much relief but feels like there is a knot in her muscle. Patient reports a musclelike spasm. Patient reports it feels like it is tight. Patient has been using warm packs without much relief. Patient reports she does feel a tingling down her left arm. TRAVEL OUTSIDE OF THE [place] IN LAST 30 DAYS: No - Related Data Allergies/Adverse Reactions: neomycin Allergy (Verified 10/28/18 18:22) Sulfa (Sulfonamide Antibiotics) Allergy (Verified 10/28/18 18:22) Home Medications: Zoloft. Adderall. Meds for anxiety Past Medical History - Social History Frequency of alcohol use: None Drug Abuse: None Pulmonary Medical History: Reports: Hx Bronchitis Endocrine Medical History: Reports: Hx Hyperthyroidism Renal/ Medical History: Denies: Hx Peritoneal Dialysis Past Surgical History: Reports: Hx Section - Immunizations Hx Diphtheria, Pertussis, Tetanus Vaccination: Yes Physical Exam - Vital signs Vitals: Temp Pulse Resp BP Pulse Ox 98.0 F 76 20 117/72 99 09/02/19 20:51 09/02/19 20:51 09/02/19 20:51 09/02/19 20:51 09/02/19 20:51 Course - Re-evaluation Re-evalutation: 09/02/19 21:13 Tenderness noted to the left trapezius muscle. Will give a dose of Valium as well as an anti-inflammatory. Patient to be reevaluated in the back. I have greeted and performed a rapid initial assessment of this patient. A comprehensive ED assessment and evaluation of the patient, analysis of test results and completion of the medical decision making process will be conducted by additional ED providers. - Vital Signs Vital signs: Temp Pulse Resp BP Pulse Ox 98.0 F 76 20 117/72 99 09/02/19 20:51 09/02/19 20:51 09/02/19 20:51 09/02/19 20:51 09/02/19 20:51 Doctor's Discharge - Discharge Referrals: GRAY LUJAN, OUTSIDE FOOD SERVER-C [Primary Care Provider] - Follow up as needed
--- NOTE | 2019-09-02 22:52 | ER Document Report ---
HPI - HPI Patient complains to provider of: left neck pain Time Seen by Provider: 09/02/19 21:08 Pain Level: 3 Context: RME NOTE: Patient is a 33-year-old female who presents to the emergency department with a chief complaint of left lateral neck pain. Patient reports last night she had her head upside down drying her hair when she went to turn her head to the right to look at her children. Patient reports she felt a sharp pain in the left lateral aspect of her neck. Patient reports she is attempted use Tylenol and ibuprofen without much relief but feels like there is a knot in her muscle. Patient reports a musclelike spasm. Patient reports it feels like it is tight. Patient has been using warm packs without much relief. Patient reports she does feel a tingling down her left arm. MY HPI: Upon my assessment patient has been treating appropriately by RME provider. Voices the pain has somewhat subsided. Patient's denying any numbness or tingling in any extremity to me at bedside. Patient's denying any loss of bowel or bladder, urinary retention. - REPRODUCTIVE Reproductive: DENIES: : Past Medical History - General Information source: Patient - Social History Smoking Status: Current Some Day Smoker Frequency of alcohol use: None Drug Abuse: None Family History: Reviewed & Not Pertinent Patient has suicidal ideation: No Patient has homicidal ideation: No Pulmonary Medical History: Reports: Hx Bronchitis Endocrine Medical History: Reports: Hx Hyperthyroidism Renal/ Medical History: Denies: Hx Peritoneal Dialysis Past Surgical History: Reports: Hx Section - Immunizations Hx Diphtheria, Pertussis, Tetanus Vaccination: Yes Vertical Provider Document - CONSTITUTIONAL Agree With Documented VS: Yes Notes: GENERAL: Alert, interacts well. No acute distress. HEAD: Normocephalic, atraumatic. EYES: Pupils equal, round, and reactive to light. Extraocular movements intact. ENT: Oral mucosa moist, tongue midline. NECK: Full range of motion. Supple. Trachea midline. Generalized pain noted left trapezius muscle and left paraspinal cervical. No anterior neck pain noted. LUNGS: Clear to auscultation bilaterally, no wheezes, rales, or rhonchi. No respiratory distress. HEART: Regular rate and rhythm. No murmur ABDOMEN: Soft, non-tender. Non-distended. Bowel sounds present in all 4 quadrants. EXTREMITIES: Moves all 4 extremities spontaneously. No edema, normal radial and dorsalis pedis pulses bilaterally. No cyanosis. Full range of motion of the left shoulder, 5 out of 5 strength noted all 4 extremities. BACK: no cervical, thoracic, lumbar midline tenderness. No saddle anesthesia, normal distal neurovascular exam. NEUROLOGICAL: Alert and oriented x3. Normal speech. cranial nerves II through XII grossly intact. PSYCH: Normal affect, normal mood. SKIN: Warm, dry, normal turgor. No rashes or lesions noted. - INFECTION CONTROL TRAVEL OUTSIDE OF THE [place] IN LAST 30 DAYS: No Course - Re-evaluation Re-evalutation: 09/02/19 22:49 Patient voices treatments by RME provider have decreased her left neck pain. On my assessment she does have musculoskeletal pain noted into her left trapezius muscle. Patient voices the pain has decreased. Discussed with her likely diagnosis of muscular control. Discussed close follow-up with primary care provider with close return precautions. Patient's denying any numbness or tingling in any extremity. Patient stable for discharge. - Vital Signs Vital signs: Temp Pulse Resp BP Pulse Ox 98.0 F 76 20 117/72 99 09/02/19 20:51 09/02/19 20:51 09/02/19 20:51 09/02/19 20:51 09/02/19 20:51 Discharge - Discharge Clinical Impression: Neck pain Trapezius muscle strain Qualifiers: Encounter type: initial encounter Laterality: left Qualified Code(s): S46.812A - Strain of other muscles, fascia and tendons at shoulder and upper arm level, left arm, initial encounter Condition: Stable Disposition: HOME, SELF-CARE Instructions: Muscle Relaxers ([facility]), Muscle Strain ([facility]), Myalagia (Muscle Pain) ([facility]), Neck Injury (Cervical Strain) ([facility]), Warm Packs ([facility]) Additional Instructions: As we discussed you have been seen and treated in the emergency department for a muscle strain. Is very important that you use [id number] Tylenol or Motrin for pain. You can also apply moist heat. Please take muscle relaxers only as prescribed. Please follow-up with your primary care provider in the next 12 to 24 hours. Return to the emergency department for any concerns. Prescriptions: Cyclobenzaprine HCl [Flexeril 5 mg Tablet] 5 mg PO TID #15 tablet Forms: Return to Work Referrals: GRAY LUJAN, DENTIST-C [Primary Care Provider] - Follow up as needed
[2019-09-02 22:59] VITALS: BP 127/71
== END 2019-09-02 23:00 | disposition home or self-care (01) ==
LOC: ER 20:45 → EEVIPCON 20:45 → ER 23:00
DX: S46.812A Strain of other muscles, fascia and tendons at shoulder and upper arm level, left arm, initial encounter (principal); M54.2 Cervicalgia; X50.1XXA Overexertion from prolonged static or awkward postures, initial encounter; M62.838 Other muscle spasm; F17.200 Nicotine dependence, unspecified, uncomplicated
CPT/HCPCS: 96372; 99283; J1885

== ENCOUNTER 2019-12-10 12:18 | Emergency (ER) | payer SELFPAY ==
[2019-12-10] MEDS ORDERED: CETIRIZINE 10 MG TABLET PO ONE (13:31)
--- NOTE | 2019-12-10 13:33 | ER Document Report ---
HPI - HPI Time Seen by Provider: 12/10/19 13:27 Pain Level: 3 Context: Patient is a 34-year-old female who presents emergency department with a chief complaint of chest congestion, cough, and a fever. Patient has had her symptoms for the past 3 days. She has been taking ibuprofen and Tylenol to help with her symptoms. Patient son recently had the flu and patient thinks that she has it also. Patient has a history of mitral valve prolapse. She does not take any m edications. - CONSTITUTIONAL Constitutional: REPORTS: Fever, Chills - EENT EENT: REPORTS: Nasal Drainage-Clear, Congestion. DENIES: Nasal Drainage- Purulent, Eye problems - NEURO Neurology: DENIES: Headache - RESPIRATORY Respiratory: REPORTS: Trouble Breathing, Coughing - REPRODUCTIVE Reproductive: DENIES: : - DERM Skin Color: Normal Skin Problems: None Past Medical History - Social History Smoking Status: Unknown if Ever Smoked Frequency of alcohol use: None Drug Abuse: None Family History: Reviewed & Not Pertinent Patient has suicidal ideation: No Patient has homicidal ideation: No Pulmonary Medical History: Reports: Hx Bronchitis Endocrine Medical History: Reports: Hx Hyperthyroidism Renal/ Medical History: Denies: Hx Peritoneal Dialysis Past Surgical History: Reports: Hx Section - Immunizations Hx Diphtheria, Pertussis, Tetanus Vaccination: Yes Vertical Provider Document - CONSTITUTIONAL Agree With Documented VS: Yes Exam Limitations: No Limitations General Appearance: No Apparent Distress - INFECTION CONTROL TRAVEL OUTSIDE OF THE [place] IN LAST 30 DAYS: No - HEENT HEENT: Atraumatic, Normocephalic, PERRLA. negative: Conjuctival Injection, Pharyngeal Exudate, Pharyngeal Tenderness, Pharyngeal Erythema, Tympanic Membrane Red, Tympanic Membrane Bulging - RESPIRATORY Respiratory: Breath Sounds Normal, No Respiratory Distress - CARDIOVASCULAR Cardiovascular: Regular Rate, Regular Rhythm Pulses: Normal: Radial - NEURO Level of Consciousness: Awake, Alert, Appropriate - DERM Integumentary: Warm, Dry, No Rash Course - Re-evaluation Re-evalutation: 12/10/19 Presentation is most consistent with a viral upper respiratory infection. Patient is overall well appearance, vitals within normal limits, well-hydrated. Patient denies any headache, neck pain, and has no evidence of meningismus on examination. Lungs are clear bilaterally. No evidence of respiratory distress. Based on clinical exam and history, I do not suspect an acute pneumonia, meningitis, strep pharyngitis, or an acute encephalitis. Chest x-ray is normal with no pneumonia noted. Influenza is negative. Will discharge patient with return precautions and followup recommendations. They are in agreement this plan have verbalized understanding return precautions. - Vital Signs Vital signs: Temp Pulse Resp BP Pulse Ox 98.3 F 84 17 107/65 97 12/10/19 13:24 12/10/19 13:24 12/10/19 13:24 12/10/19 13:24 12/10/19 13:24 Discharge - Discharge Clinical Impression: Cough URI (upper respiratory infection) Qualifiers: URI type: unspecified URI Qualified Code(s): J06.9 - Acute upper respiratory infection, unspecified Fever Qualifiers: Fever type: unspecified Qualified Code(s): R50.9 - Fever, unspecified Condition: Stable Disposition: HOME, SELF-CARE Additional Instructions: You were seen today in the emergency department for a cough, fever. Your symptoms are most consistent with an upper respiratory viral infection. Please take acetaminophen 1000 mg and ibuprofen 600 mg every 6 hours as needed for any body aches or fever. You have been given cetirizine, medication to help with your runny nose. Take 1 tablet every day while you have symptoms. You have also been given Flonase, medication to help with the inflammation in your nose. Place 1 spray to each nostril twice a day. If you develop a fever greater than 100.4 F while on ibuprofen and acetaminophen, develop shortness of breath, difficulty breathing, or any symptoms that are worrisome to you, please return to the emergency department. Prescriptions: Cetirizine HCl [All Day Allergy] 10 mg PO DAILY #30 tablet Fluticasone Propionate [Flonase Nasal [place] 50 Mcg/[place] 16 gm] 2 sprays NASL DAILY #1 inhaler Forms: Return to Work Referrals: GRAY LUJAN NP-C [NURSE PRACTITIONER] - Follow up in 3-5 days
[2019-12-10 13:57] LABS: A TYPE INFLUENZA AG NEGATIVE (NEGATIVE); B INFLUENZA AG NEGATIVE (NEGATIVE)
--- NOTE | 2019-12-10 14:09 | RADIOLOGY REPORT (SQ) ---
EXAM DESCRIPTION: CHEST 2 VIEWS COMPLETED DATE/TIME: 12/10/2019 1:46 pm REASON FOR STUDY: chest congestion; fever COMPARISON: 02/01/2017 EXAM PARAMETERS: NUMBER OF VIEWS: two views TECHNIQUE: Digital Frontal and Lateral radiographic views of the chest acquired. RADIATION DOSE: NA LIMITATIONS: none FINDINGS: LUNGS AND PLEURA: No opacities, masses or pneumothorax. No pleural effusion. MEDIASTINUM AND HILAR STRUCTURES: No masses or contour abnormalities. HEART AND VASCULAR STRUCTURES: Heart normal size. No evidence for failure. BONES: No acute findings. HARDWARE: None in the chest. OTHER: No other significant finding. IMPRESSION: NO ACUTE RADIOGRAPHIC FINDING IN THE CHEST. TECHNICAL DOCUMENTATION: JOB ID: [id number] 2010 [employer]- All Rights Reserved Reading location - IP/workstation name: [email or web address]
[2019-12-10 14:23] VITALS: BP 124/76
== END 2019-12-10 14:36 | disposition home or self-care (01) ==
LOC: ER 12:18
DX: J06.9 Acute upper respiratory infection, unspecified (principal); R05 Cough; R50.9 Fever, unspecified
CPT/HCPCS: 71046; 87804; 99283